=== PATIENT | male | born 1990 ===

== ENCOUNTER 2017-01-26 09:44 | Emergency (ER) | payer MEDICAID ==
[2017-01-26 09:44] VITALS: BMI 20.5
[2017-01-26 10:04] VITALS: BP 105/70; RESP 16; TEMP 98.2; O2SAT 98
[2017-01-26 10:43] VITALS: PULSE 62
--- NOTE | 2017-01-27 10:59 | CARD ---
APPROVED REPORT EKG Measurement Heart [id number] <Conclusion> Normal sinus rhythm Normal ECG
== END 2017-01-26 10:52 | disposition home or self-care (01) ==
LOC: H.ER 09:44
DX: K29.70 Gastritis, unspecified, without bleeding (principal); F10.10 Alcohol abuse, uncomplicated; Z86.59 Personal history of other mental and behavioral disorders

== ENCOUNTER 2017-02-18 10:54 | Emergency (ER) | payer MEDICAID ==
[2017-02-18 10:54] VITALS: BMI 20.5
[2017-02-18 11:01] VITALS: BP 108/58; PULSE 84; TEMP 97.9; O2SAT 100
[2017-02-18 11:28] VITALS: RESP 16
[2017-02-18] MEDS ORDERED: Sodium Chloride 0.9% 1,000 ML IV STA (11:56)
--- NOTE | 2017-02-18 12:11 | ED PDOC ---
HPI: General Adult Time Seen by Provider: 02/18/17 11:13 Chief Complaint (Nursing): Headache Chief Complaint (Provider): anxiety History Per: Patient History/Exam Limitations: no limitations Onset/Duration Of Symptoms: Days (x 1) Additional Complaint(s): Bull Ortez is a 26 year old male, with a previous medical history of alcoholism and HIV, who presents to the ED with complaints of alcohol withdrawal stating he felt anxious, shaky and sweaty since yesterday when he stopped alcohol consumption. Patient denies any suicidal ideation, homicidal ideation, abdominal pain, nausea or vomiting. He reports taking marijuana 3 days ago but denies any other drug use. Patient reports he is trying to find a detox program PMD none provided Past Medical History Reviewed: Historical Data, Nursing Documentation, Vital Signs Vital Signs: Last Vital Signs Temp 97.9 F 02/18/17 11:22 Pulse 84 02/18/17 11:22 Resp 16 02/18/17 11:22 BP 108/58 L 02/18/17 11:22 Pulse Ox 100 02/18/17 13:49 - Medical History PMH: Anxiety, Bipolar Disorder, Depression, HIV, Paranoia, Schizophrenia, Seizures (ETOH related) Denies: Diabetes, Hepatitis, HTN, Personality Disorder, Chronic Kidney Disease, Sexually Transmitted Disease - Family History Family History: States: Unknown Family Hx - Immunization History Hx Tetanus Toxoid Vaccination: No Hx Influenza Vaccination: No Hx Pneumococcal Vaccination: No - Home Medications Home Medications: Ambulatory Orders Medication Instructions Recorded Elviteg/Melanie/Emtric/Tenofo Ala 1 each PO DAILY 01/31/17 [Genvoya Tablet] ARIPiprazole [Abilify] 10 mg PO QPM #10 tab 02/04/17 Gabapentin [Neurontin] 400 mg PO TID #30 cap 02/04/17 buPROPion XL [Wellbutrin XL] 150 mg PO DAILY #30 t24 02/04/17 hydrOXYzine HCl [Atarax] 50 mg PO BID PRN #60 tab 02/04/17 - Allergies Allergies/Adverse Reactions: Allergies Allergy/AdvReac Type Severity Reaction Status Date / Time haloperidol [From Haldol] AdvReac PAIN Verified 02/09/17 23:34 haloperidol lactate AdvReac PAIN Verified 02/09/17 23:34 [From Haldol] Review of Systems ROS Statement: Except As Marked, All Systems Reviewed And Found Negative Constitutional: Negative for: Fever, Chills Gastrointestinal: Negative for: Nausea, Vomiting, Abdominal Pain, Diarrhea Neurological: Positive for: Other (shaking) Psych: Positive for: Anxiety Physical Exam - Reviewed Nursing Documentation Reviewed: Yes Vital Signs Reviewed: Yes - Physical Exam Appears: Positive for: Well, Non-toxic, No Acute Distress Head Exam: Positive for: ATRAUMATIC, NORMAL INSPECTION, NORMOCEPHALIC Skin: Positive for: Normal Color, Warm, DRY Eye Exam: Positive for: EOMI, Normal appearance, PERRL ENT: Positive for: Normal ENT Inspection Neck: Positive for: Normal, Painless ROM Cardiovascular/Chest: Positive for: Regular Rate, Rhythm Respiratory: Positive for: CNT, Normal Breath Sounds Gastrointestinal/Abdominal: Positive for: Normal Exam, Bowel Sounds, Soft Back: Positive for: Normal Inspection Extremity: Positive for: Normal ROM, Other (no tremors noted ) Neurologic/Psych: Positive for: Alert, Oriented - Laboratory Results Result Diagrams: 02/18/17 12:14 02/18/17 12:14 - ECG O2 Sat by Pulse Oximetry: 100 (RA) Pulse Ox Interpretation: Normal - Progress Re-evaluation Time: 13:48 Condition: Re-examined, Improved Medical Decision Making Medical Decision Making: Initial Impression: alcohol withdrawal Initial Plan: * labs * folic acid 1mg * IV NS 1,000 ml at 1,000 ml/hr * zofran 4 mg IV * vitamin B1 * Librium * reevaluation --------- Scribe Attestation: Documented by Yoana Huynh, acting as a scribe for Alma Vargas MD. Provider Scribe Attestation: All medical record entries made by the Scribe were at my direction and personally dictated by me. I have reviewed the chart and agree that the record accurately reflects my personal performance of the history, physical exam, medical decision making, and the department course for this patient. I have also personally directed, reviewed, and agree with the discharge instructions and disposition Disposition - Clinical Impression Clinical Impression: Alcohol abuse, Alcohol withdrawal - Patient ED Disposition Is Patient to be Admitted: No Doctor Will See Patient In The: Office Counseled Patient/Family Regarding: Studies Performed, Diagnosis, Need For Followup - Disposition Referrals: [facility] [Outside] Disposition: Routine/Home Disposition Time: 13:49 Condition: GOOD Additional Instructions: Follow up with your PCP in 3 days. Instructions: Abuse of Alcohol (ED), Alcohol Withdrawal (DC)
[2017-02-18 12:26] LABS: BASO # 0.1 K/uL (0.0-0.2); EOS % 0.6 % (0.0-4.0); HEMATOCRIT 43.3 % (35.0-51.0); LYMPH # 1.5 K/uL (1.0-4.3); LYMPH % 19.8 % (20.0-40.0); MEAN CELL VOLUME 92.7 fl (80.0-94.0); MEAN CORPUSCULAR HEMOGLOBIN 32.2 pg (27.0-31.0); MEAN CORPUSCULAR HGB CONC 34.8 g/dL (33.0-37.0); MEAN PLATELET VOLUME 8.1 fl (7.2-11.7); MONO # 0.5 K/uL (0.0-0.8); NEUT # 5.5 K/uL (1.8-7.0); NEUT % 71.6 % (50.0-75.0); NRBC % 0.1 % (0.0-0.0); RED CELL DISTRIBUTION WIDTH 13.6 % (11.5-14.5); WHITE BLOOD COUNT 7.8 K/uL (4.8-10.8)
[2017-02-18 12:43] LABS: BLOOD UREA NITROGEN 18 mg/dl (9-20); CALCIUM 9.3 mg/dL (8.4-10.2); CARBON DIOXIDE 27 mmol/L (22-30); CHLORIDE 102 mmol/L (98-107); GFR AFRICAN-AMERICAN > 60; GLUCOSE,RANDOM 99 mg/dL (75-110); SODIUM 138 mmol/l (132-148)
[2017-02-18 12:44] LABS: POTASSIUM 4.1 MMOL/L (3.6-5.0)
== END 2017-02-18 14:14 | disposition home or self-care (01) ==
LOC: H.ER 10:54
DX: F10.239 Alcohol dependence with withdrawal, unspecified (principal); F10.10 Alcohol abuse, uncomplicated; Z86.59 Personal history of other mental and behavioral disorders; B20 Human immunodeficiency virus [HIV] disease
CPT/HCPCS: 80048; 85025; 96361; 96365; 96375; 99284; J2405; J7040

== ENCOUNTER 2017-05-12 13:29 | Emergency (ER) | payer MEDICAID ==
[2017-05-12 13:29] VITALS: BMI 21.9
[2017-05-12 13:35] VITALS: BP 117/75; PULSE 112; RESP 16; TEMP 97.8; O2SAT 100
[2017-05-12] MEDS ORDERED: Sodium Chloride 0.9% 1,000 ML IV STA (14:18)
--- NOTE | 2017-05-12 14:21 | ED PDOC ---
HPI: Psych/Substance Abuse Time Seen by Provider: 05/12/17 14:14 Chief Complaint (Nursing): Dizziness/Lightheaded History Per: Patient Onset/Duration Of Symptoms: Days (1) Current Symptoms Are (Timing): Still Present Suicide/Self Injury Attempted (Context): None Modifying Factor(s): Alcohol Severity: Mild Additional Complaint(s): Feels tremulous after cessation of ETOH x 24 hrs. Drinks daily. Last drank 24 hrs ago. Denies SI/HI Past Medical History Vital Signs: Last Vital Signs Temp 97.8 F 05/12/17 13:33 Pulse 112 H 05/12/17 13:33 Resp 16 05/12/17 13:33 BP 117/75 05/12/17 13:33 Pulse Ox 100 05/12/17 13:33 - Medical History PMH: Anxiety, Asthma, Bipolar Disorder, Depression, HIV, Paranoia, Schizophrenia , Seizures (ETOH related) Denies: Diabetes, Hepatitis, HTN, Personality Disorder, Chronic Kidney Disease, Sexually Transmitted Disease - Family History Family History: States: Unknown Family Hx - Immunization History Hx Tetanus Toxoid Vaccination: No Hx Influenza Vaccination: No Hx Pneumococcal Vaccination: No - Home Medications Home Medications: Ambulatory Orders Medication Instructions Recorded ARIPiprazole [Abilify] 10 mg PO DAILY #30 tab 04/18/17 Gabapentin [Neurontin] 300 mg PO TID #90 cap 04/18/17 traZODone [Desyrel] 100 mg PO HS PRN #30 tab 04/18/17 chlordiazePOXIDE [Chlordiazepoxide 25 mg PO TID #10 cap 05/12/17 HCl] - Allergies Allergies/Adverse Reactions: Allergies Allergy/AdvReac Type Severity Reaction Status Date / Time haloperidol [From Haldol] AdvReac PAIN Verified 05/12/17 13:33 haloperidol lactate AdvReac PAIN Verified 05/12/17 13:33 [From Haldol] Review of Systems ROS Statement: Except As Marked, All Systems Reviewed And Found Negative Neurological: Positive for: Seizures Psych: Positive for: Anxiety Physical Exam - Reviewed Nursing Documentation Reviewed: Yes Vital Signs Reviewed: Yes - Physical Exam Appears: Positive for: Non-toxic, No Acute Distress Head Exam: Positive for: ATRAUMATIC, NORMAL INSPECTION, NORMOCEPHALIC Skin: Positive for: Normal Color, Warm, DRY Eye Exam: Positive for: EOMI, Normal appearance, PERRL ENT: Positive for: Normal ENT Inspection Neck: Positive for: Normal, Painless ROM Cardiovascular/Chest: Positive for: Regular Rate, Rhythm Respiratory: Positive for: CNT, Normal Breath Sounds Gastrointestinal/Abdominal: Positive for: Normal Exam, Bowel Sounds, Soft Back: Positive for: Normal Inspection Extremity: Positive for: Normal ROM Neurologic/Psych: Positive for: Alert, Oriented, Other (Minimal tremors upper ext.). Negative for: Motor/Sensory Deficits - Laboratory Results Result Diagrams: 05/12/17 14:45 05/12/17 14:45 - ECG O2 Sat by Pulse Oximetry: 100 - Progress Re-evaluation Time: 16:46 Condition: Improved (No tremors) Disposition - Clinical Impression Clinical Impression: Alcohol withdrawal - Patient ED Disposition Is Patient to be Admitted: No Counseled Patient/Family Regarding: Studies Performed, Diagnosis, Need For Followup, Rx Given - Disposition Referrals: [facility] [Outside] Disposition: Routine/Home Disposition Time: 16:47 Condition: FAIR Prescriptions: chlordiazePOXIDE [Chlordiazepoxide HCl] 25 mg PO TID #10 cap Instructions: Alcohol Withdrawal (ED) Forms: [facility] (Thai)
[2017-05-12 14:53] LABS: BASO % 0.7 % (0.0-2.0); EOS # 0.1 K/uL (0.0-0.7); EOS % 0.8 % (0.0-4.0); HEMATOCRIT 46.1 % (35.0-51.0); LYMPH # 1.3 K/uL (1.0-4.3); LYMPH % 19.2 % (20.0-40.0); MEAN CELL VOLUME 93.8 fl (80.0-94.0); MEAN CORPUSCULAR HEMOGLOBIN 32.3 pg (27.0-31.0); MEAN CORPUSCULAR HGB CONC 34.4 g/dL (33.0-37.0); MEAN PLATELET VOLUME 8.4 fl (7.2-11.7); MONO # 0.6 K/uL (0.0-0.8); MONO % 9.8 % (0.0-10.0); NEUT # 4.6 K/uL (1.8-7.0); NEUT % 69.5 % (50.0-75.0); NRBC % 0.1 % (0.0-0.0); RED CELL DISTRIBUTION WIDTH 13.3 % (11.5-14.5); WHITE BLOOD COUNT 6.6 K/uL (4.8-10.8)
[2017-05-12 15:11] LABS: ALB/GLOB RATIO 1.2 (1.0-2.1); ALCOHOL SERUM < 10 mg/dl (0-10); ALKALINE PHOSPHATASE 50 U/L (38-126); ALT/SGPT 52 U/L (21-72); AST/SGOT 41 U/L (17-59); BILIRUBIN,TOTAL 0.6 mg/dl (0.2-1.3); BLOOD UREA NITROGEN 12 mg/dl (9-20); CALCIUM 9.2 mg/dL (8.4-10.2); CARBON DIOXIDE 29 mmol/L (22-30); CHLORIDE 103 mmol/L (98-107); GFR AFRICAN-AMERICAN > 60; GLUCOSE,RANDOM 95 mg/dL (75-110); POTASSIUM 3.7 MMOL/L (3.6-5.0); SODIUM 141 mmol/l (132-148); TOTAL PROTEIN 7.6 G/DL (6.3-8.2)
--- NOTE | 2017-05-13 05:52 | CARD ---
APPROVED REPORT EKG Measurement Heart [id number] [id number] [id number] <Conclusion> Normal sinus rhythm Possible Inferior infarct, age undetermined Abnormal ECG
== END 2017-05-12 16:59 | disposition home or self-care (01) ==
LOC: H.ER 13:29
DX: F10.239 Alcohol dependence with withdrawal, unspecified (principal); F20.9 Schizophrenia, unspecified; F31.9 Bipolar disorder, unspecified; F41.9 Anxiety disorder, unspecified; J45.909 Unspecified asthma, uncomplicated
CPT/HCPCS: 80053; 80320; 80324; 80345; 80346; 80349; 80353; 80358; 80361; 83992; 85025; 93005; 99285; J7040

== ENCOUNTER 2017-05-22 19:26 | Inpatient (IN) | payer MEDICAID ==
[2017-05-22 19:26] VITALS: BMI 21.9
--- NOTE | 2017-05-22 19:47 | ED PDOC ---
HPI: Psych/Substance Abuse Time Seen by Provider: 05/22/17 19:35 Chief Complaint (Nursing): Psychiatric Evaluation Chief Complaint (Provider): Psychiatric Evaluation History Per: Patient History/Exam Limitations: no limitations Onset/Duration Of Symptoms: Days (x1) Current Symptoms Are (Timing): Still Present Additional Complaint(s): Bull Ortez is a 27 year old male with a past medical history of schizoaffective disorder and alcohol abuse, who presents to the ED for psychiatric evaluation. Patent arrives stating I have suicidal ideation. Patient states that hes been depressed about his relationship with his girlfriend and that he plans on buying Xanax, overdosing and killing himself. States he had alcohol prior to arrival. Denies drug use. PMD: [facility] Past Medical History Reviewed: Historical Data, Nursing Documentation, Vital Signs Vital Signs: Last Vital Signs Temp 98.1 F 05/22/17 19:29 Pulse 98 H 05/22/17 19:29 Resp 16 05/22/17 19:29 BP 115/69 05/22/17 19:29 Pulse Ox 98 05/22/17 19:29 - Medical History PMH: Anxiety, Asthma, Bipolar Disorder, Depression, HIV, Paranoia, Schizophrenia , Seizures (ETOH related) Denies: Diabetes, Hepatitis, HTN, Personality Disorder, Chronic Kidney Disease, Sexually Transmitted Disease - Surgical History Surgical History: No Surg Hx - Family History Family History: States: Unknown Family Hx - Social History Alcohol: Occasional - Immunization History Hx Tetanus Toxoid Vaccination: No Hx Influenza Vaccination: No Hx Pneumococcal Vaccination: No - Home Medications Home Medications: Ambulatory Orders Medication Instructions Recorded ARIPiprazole [Abilify] 10 mg PO DAILY #30 tab 04/18/17 Gabapentin [Neurontin] 300 mg PO TID #90 cap 04/18/17 traZODone [Desyrel] 100 mg PO HS PRN #30 tab 04/18/17 chlordiazePOXIDE [Chlordiazepoxide 25 mg PO TID #10 cap 05/12/17 HCl] - Allergies Allergies/Adverse Reactions: Allergies Allergy/AdvReac Type Severity Reaction Status Date / Time haloperidol [From Haldol] AdvReac PAIN Verified 05/12/17 13:33 haloperidol lactate AdvReac PAIN Verified 05/12/17 13:33 [From Haldol] Review of Systems ROS Statement: Except As Marked, All Systems Reviewed And Found Negative Psych: Positive for: Suicidal ideation Physical Exam - Physical Exam Appears: Positive for: Non-toxic, No Acute Distress Head Exam: Positive for: ATRAUMATIC, NORMAL INSPECTION, NORMOCEPHALIC Skin: Positive for: Normal Color, Warm, Dry Eye Exam: Positive for: EOMI, Normal appearance, PERRL Neck: Positive for: Normal, Painless ROM, Supple Cardiovascular/Chest: Positive for: Regular Rate, Rhythm. Negative for: Murmur Respiratory: Positive for: Normal Breath Sounds. Negative for: Respiratory Distress Gastrointestinal/Abdominal: Positive for: Normal Exam, Bowel Sounds, Soft. Negative for: Tenderness Back: Positive for: Normal Inspection. Negative for: L CVA Tenderness, R CVA Tenderness, Vertebral Tenderness Extremity: Positive for: Normal ROM. Negative for: Pedal Edema, Deformity Neurologic/Psych: Positive for: Alert, Oriented (x3), Mood/Affect (Flat affect) - Laboratory Results Result Diagrams: 05/22/17 21:03 05/22/17 20:03 - ECG O2 Sat by Pulse Oximetry: 98 (RA) Pulse Ox Interpretation: Normal Medical Decision Making Medical Decision Making: Time: 19:35 Initial Impression: Schizoaffective disorder, depression --Acetaminophen --Alcohol serum --BMP --Drug screen, urine --Salicylate --CBC w/ differential --Urinalysis --Reevaluation 245 Librium given to prevent withdrawal symptoms. Pt. accepted by Dr. Ramirez w/ dx: depression. Scribe Attestation: Documented by Rafael Presley acting as a scribe for Arthur Burton MD. MD Morrisibfrancisco Attestation: All medical record entries made by the Scribe were at my direction and personally dictated by me. I have reviewed the chart and agree that the record accurately reflects my personal performance of the history, physical exam, medical decision making, and the department course for this patient. I have also personally directed, reviewed, and agree with the discharge instructions and disposition. Disposition - Clinical Impression Clinical Impression: Depression - Disposition Disposition Time: 02:45 Condition: SERIOUS Forms: [facility] (Guamanian)
[2017-05-22 20:21] LABS: ALCOHOL SERUM 244 mg/dl (0-10); BLOOD UREA NITROGEN 10 mg/dl (9-20); CALCIUM 9.2 mg/dL (8.4-10.2); CARBON DIOXIDE 24 mmol/L (22-30); CHLORIDE 104 mmol/L (98-107); GFR AFRICAN-AMERICAN > 60; GLUCOSE,RANDOM 59 mg/dL (75-110); SODIUM 146 mmol/l (132-148)
[2017-05-22 21:30] LABS: BASO # 0.1 K/uL (0.0-0.2); BASO % 1.2 % (0.0-2.0); EOS # 0.1 K/uL (0.0-0.7); EOS % 1.4 % (0.0-4.0); HEMATOCRIT 52.8 % (35.0-51.0); LYMPH % 41.3 % (20.0-40.0); MEAN CELL VOLUME 95.5 fl (80.0-94.0); MEAN CORPUSCULAR HEMOGLOBIN 32.2 pg (27.0-31.0); MEAN CORPUSCULAR HGB CONC 33.7 g/dL (33.0-37.0); MEAN PLATELET VOLUME 8.3 fl (7.2-11.7); MONO # 0.8 K/uL (0.0-0.8); MONO % 7.9 % (0.0-10.0); NEUT # 4.7 K/uL (1.8-7.0); NEUT % 48.2 % (50.0-75.0); NRBC % 0.3 % (0.0-0.0); RED CELL DISTRIBUTION WIDTH 13.6 % (11.5-14.5); WHITE BLOOD COUNT 9.6 K/uL (4.8-10.8)
[2017-05-22 23:07] LABS: URINE BILIRUBIN NEGATIVE (NEGATIVE); URINE COLOR YELLOW (YELLOW); URINE GLUCOSE (UA) NEGATIVE (Normal); URINE KETONE TRACE mg/dL (NEGATIVE)
[2017-05-22 23:08] LABS: RBC URINE < 1 /hpf (0-3); URINE BLOOD NEGATIVE (NEGATIVE); URINE LEUKOCYTE ESTERASE NEGATIVE Leu/uL (Negative); URINE PROTEIN 30 mg/dL (NEGATIVE); URINE UROBILINOGEN 0.2 mg/dL (0.2-1.0); WBC URINE 2 /hpf (0-5)
[2017-05-22 23:09] LABS: GRANULAR CAST 1 /lpf (0-1)
[2017-05-23 03:36] VITALS: O2SAT 96
[2017-05-23] MEDS ORDERED: Alum-Mag Hydrox-Simethicone Susp (30 mL) PO PRN (04:26)
[2017-05-23] MEDS ORDERED: Magnesium Hydroxide Susp 30 ml UD PO PRN (04:26)
[2017-05-23] MEDS ORDERED: DiphenhydrAMINE 50 mg/ml Inj IM PRN (04:26)
--- NOTE | 2017-05-23 05:08 | PCM.BM ---
Treatment Plan Problems - Problems identified on initial assessmt Suicide ideation Date Initiated: 05/23/17 Time Initiated: 05:07 Assessment reference: NA Status: Active Ineffective coping Date Initiated: 05/23/17 Time Initiated: 05:07 Assessment reference: NA Status: Active Treatment assets and liabiliti Patient Assests: cooperative, self-reliant, ADL independent, negotiates basic needs, cognitively intact, good interpersonal skills Patient Liabilities: relationship conflicts, substance abuse, medical problems - Milieu Protocol Maintain good personal hygiene: daily Assist patient to perform ADL's, every shift Encourage regular showers, every shift Remind patient to perform daily oral care Conduct patient checks and document Observation sheet: Q15 minutes Maintain personal safety: every shift Educate patient to report safety concerns to staff, every shift Monitor environment for contraband/sharps Medication safety: Monitor for expected outcome, potential side effects: daily, Assess barriers to learning: every shift, Assess readiness for medication education: every shift
[2017-05-23 05:10] VITALS: RESP 18
[2017-05-23] MEDS: Multivitamin With Minerals Tab PO SCH (09:59)
--- NOTE | 2017-05-23 15:25 | PCM.PSYCH ---
Initial Psychiatric Evaluation - Initial Psychiatric Evaluation Chief Complaint (in patient's own words): I was depressed Patient's Reaction to Hospitalization: pt requested help History of Present Illness and Precipitating Events: patient is a single HIV+ 26 year old male with a psychiatric history of bipolar disorder, borderline personality disorder, panic disorder, alcohol dependency, stimulant abuse, numerous admissions-most recently at [facility] 01/31/17-02/04, poor compliance with aftercare recommendations and medications who was brought in by EMS to the emergency department for suicidal ideation and alcohol intoxication. pt reported having conflict with girlfriend accordingly started using mincreasing amounts of alcohol and cannabis denied suicidal or homicidal ideations on the unit denied perceptual disturbances Current Medications: Active Medications Generic Name Dose Route Start Last Admin Trade Name Freq PRN Reason Stop Dose Admin Acetaminophen 650 mg 05/23/17 04:26 Tylenol 325mg Tab PO Q4 PRN Pain, moderate (4-7) Al Hydrox/Mg Hydrox/Simethicone 30 ml 05/23/17 04:26 Maalox Plus 30 Ml PO Q4 PRN Dyspepsia Bupropion HCl 75 mg 05/23/17 12:14 05/23/17 14:49 Wellbutrin PO 75 mg DAILY TAVIA Administration Chlordiazepoxide 25 mg 05/23/17 04:51 05/23/17 10:02 Librium PO 25 mg Q4H PRN Administration Withdrawl Diphenhydramine HCl 50 mg 05/23/17 04:26 Benadryl IM Q6 PRN Extrapyramidal S/S Unable PO Diphenhydramine HCl 50 mg 05/23/17 04:26 Benadryl PO Q6 PRN Extrapyramidal Symptoms Diphenhydramine HCl 50 mg 05/23/17 04:41 Benadryl PO HS PRN Sleep Folic Acid 1 mg 05/23/17 09:00 05/23/17 09:59 Folic Acid PO 1 mg DAILY TAVIA Administration Lorazepam 1 mg 05/23/17 04:26 Ativan IM Q4 PRN Anxiety/Agitation,Unable PO Lorazepam 2 mg 05/23/17 04:26 Ativan PO Q4 PRN Anxiety/Agitation Magnesium Hydroxide 30 ml 05/23/17 04:26 Milk Of Magnesia PO HS PRN Constipation Multivitamins/Minerals 1 tab 05/23/17 09:00 05/23/17 09:59 Therapeutic-M Tab PO 1 tab DAILY TAVIA Administration Thiamine HCl 100 mg 05/23/17 09:00 05/23/17 09:59 Vitamin B1 Tab PO 100 mg DAILY TAVIA Administration Past Psychiatric History - Past Psychiatric History Explanation of prior treatment: unspecified number of hospitalizations due to alcohol intoxication and suicidal ideations History of Abuse: denied History of ETOH/Drug Use: hx of alcohol, benzo, cocaine and cannabis use History of Family Illness: father has hx of alcohol use Pertinent Medical Hx (Current Medical&Sleep Prob, Allergies): Allergies Allergy/AdvReac Type Severity Reaction Status Date / Time haloperidol [From Haldol] AdvReac PAIN Verified 05/12/17 13:33 haloperidol lactate AdvReac PAIN Verified 05/12/17 13:33 [From Haldol] Mental Status Examination - Personal Presentation Personal Presentation: Looks stated age - Affect Affect: Constricted, Depressed - Motor Activity Motor Activity: Calm - Reliability in Providing Information Reliability in Providing Information: Poor, due to altered mood - Speech Speech: Relevant - Mood Mood: Depressed, Anxious - Formal Thought Process Formal Thought Process: Circumstantial - Hallucinations/Delusions Additional comments: denied perceptual disturbances, non elicited - Obsessions/Compulsions Obsessions: No Compulsions: No - Cognitive Functions Orientation: Person, Place, Situation Sensorium: Alert Attention/Concentration: Attentive Abstract Thinking: [place] Judgement: Imparied, as evidence by: Poor judgement, Imparied, as evidence by: Lack of insight into illness - Risk Risk: Withdrawal, Diminished functioning - Strength & Assets Inventory Strength & Assets Inventory: Family support - Limitations Additional comments: poor compliance DSM 5 DX - DSM 5 DSM 5 Diagnosis: alcohol induced mood disorder with depressive features alcohol use disorder cannabis use disorder depression - Recommended/Plan of Treatment Treatment Recommendations and Plan of Treatment: librium prn for symptoms and signs of alcohol withdrawal start wellbutrin for depression and alcohol cravings ID consult for restarting HIV medications motivational and group therapy Projected ELOS: 5 days Discharge Plan and Discharge Criteria: pt mood stable
--- NOTE | 2017-05-23 16:29 | CP.PCM.CON ---
<Daniela Becker - Last Filed: 05/23/17 16:48> History of Present Illness - History of Present Illness History of Present Illness: 27 y/o male with PMHx of HIV and depression seen at bedside in psych unit for medical evaluation. Pt states he was feeling depressed and suicidal and drank heavily prior to admission. Pt admits to a long history of alcoholism with several attempts at quitting but relapsing soon after. Pt admits to frequent withdrawals with cold sweats and shaking. Pt admits to a history of seizures. Pt states he normally takes Genvoya for his HIV but has been off it for approx 1 month due to inability to get a doctor's appointment. Pt states that over the last month he resumed taking some leftover Stribild he had, which he was on prior to starting Genvoya. Admits to mild watery diarrhea. Denies fever, chills , nausea or vomiting. Denies constipation or abdominal pain. Denies headache, changes in vision, dizziness or lightheadedness. Denies cough, CP or SOB. Admits to formerly taking Wellbutrin for depression but says he becomes noncompliant with his medications when he goes on drinking binges. PMH: HIV, seizures following alcohol withdrawal, depression Meds: Genvoya PSH: denies All: haloperidol (dystonic reaction) Social: alcohol abuse, 1/2 pack cigarettes/day, admits to smoking marijuana; denies all other illicit drug use Family: lives with grandmother locally; father had cancer; no fam hx of DM or heart disease Next of Kin: girlfriend Code status: full code Review of Systems - Constitutional Constitutional: Night Sweats. absent: Chills, Fever - EENT Eyes: absent: Blurred Vision Nose/Mouth/Throat: absent: Nasal Discharge, Dry Mouth - Cardiovascular Cardiovascular: absent: Chest Pain, Dyspnea - Respiratory Respiratory: absent: Cough - Gastrointestinal Gastrointestinal: Diarrhea. absent: Constipation, Nausea, Vomiting - Genitourinary Genitourinary: absent: Difficulty Urinating - Musculoskeletal Musculoskeletal: absent: Muscle Weakness - Integumentary Integumentary: absent: New Lesions - Neurological Neurological: absent: Confusion, Headaches - Psychiatric Psychiatric: Depression Past Patient History - Infectious Disease Hx of Infectious Diseases: None - Past Medical History & Family History Past Medical History?: Yes Pertinent Family History: father has hx of cancer - Past Social History Smoking Status: Heavy Smoker > 10 Cigarettes Daily Home Situation {Lives}: With Family - CARDIAC Hx Cardiac Disorders: No Hx Hypertension: No - PULMONARY Hx Tuberculosis: No - NEUROLOGICAL HX Cerebrovascular Accident: No Hx Seizures: Yes (ETOH related) - HEENT Hx HEENT Problems: No - RENAL Hx Chronic Kidney Disease: No - ENDOCRINE/METABOLIC Hx Endocrine Disorders: No - HEMATOLOGICAL/ONCOLOGICAL Hx Cancer: No Hx Human Immunodeficiency Virus (HIV): Yes (since ) - INTEGUMENTARY Hx Dermatological Problems: No - MUSCULOSKELETAL/RHEUMATOLOGICAL Hx Falls: No - GASTROINTESTINAL Hx Gastrointestinal Disorders: No - GENITOURINARY/GYNECOLOGICAL Hx Sexually Transmitted Disorders: No - PSYCHIATRIC Hx Anxiety: Yes Hx Depression: Yes Hx Substance Use: Yes (mj) - SURGICAL HISTORY Hx Orthopedic Surgery: Yes (Right wrist surgery) Other/Comment: surgery rt wrist 2009 - ANESTHESIA Hx Anesthesia: Yes Hx Anesthesia Reactions: No Hx Malignant Hyperthermia: No Meds Allergies/Adverse Reactions: Allergies Allergy/AdvReac Type Severity Reaction Status Date / Time haloperidol [From Haldol] AdvReac PAIN Verified 05/12/17 13:33 haloperidol lactate AdvReac PAIN Verified 05/12/17 13:33 [From Haldol] - Medications Medications: Current Medications Acetaminophen (Tylenol 325mg Tab) 650 mg PO Q4 PRN PRN Reason: Pain, moderate (4-7) Al Hydrox/Mg Hydrox/Simethicone (Maalox Plus 30 Ml) 30 ml PO Q4 PRN PRN Reason: Dyspepsia Bupropion HCl (Wellbutrin) 75 mg PO DAILY [facility] Last Admin: 05/23/17 14:49 Dose: 75 mg Chlordiazepoxide (Librium) 25 mg PO Q4H PRN PRN Reason: Withdrawl Last Admin: 05/23/17 10:02 Dose: 25 mg Diphenhydramine HCl (Benadryl) 50 mg IM Q6 PRN PRN Reason: Extrapyramidal S/S Unable PO Diphenhydramine HCl (Benadryl) 50 mg PO Q6 PRN PRN Reason: Extrapyramidal Symptoms Diphenhydramine HCl (Benadryl) 50 mg PO HS PRN PRN Reason: Sleep Folic Acid (Folic Acid) 1 mg PO DAILY TAVIA Last Admin: 05/23/17 09:59 Dose: 1 mg Lorazepam (Ativan) 1 mg IM Q4 PRN PRN Reason: Anxiety/Agitation,Unable PO Lorazepam (Ativan) 2 mg PO Q4 PRN PRN Reason: Anxiety/Agitation Magnesium Hydroxide (Milk Of Magnesia) 30 ml PO HS PRN PRN Reason: Constipation Multivitamins/Minerals (Therapeutic-M Tab) 1 tab PO DAILY [facility] Last Admin: 05/23/17 09:59 Dose: 1 tab Thiamine HCl (Vitamin B1 Tab) 100 mg PO DAILY [facility] Last Admin: 05/23/17 09:59 Dose: 100 mg Physical Exam - Constitutional Appears: Well, Non-toxic, No Acute Distress - Head Exam Head Exam: ATRAUMATIC, NORMOCEPHALIC - Eye Exam Eye Exam: EOMI, Normal appearance Pupil Exam: PERRL - ENT Exam ENT Exam: Mucous Membranes Moist, Normal Exam - Neck Exam Neck exam: Positive for: Full Rom, Normal Inspection. Negative for: Tenderness - Respiratory Exam Respiratory Exam: Clear to Auscultation Bilateral, NORMAL BREATHING PATTERN. absent: Wheezes, Respiratory Distress - Cardiovascular Exam Cardiovascular Exam: REGULAR RHYTHM, +S1, +S2 - GI/Abdominal Exam GI & Abdominal Exam: Normal Bowel Sounds, Soft. absent: Distended - Rectal Exam Rectal Exam: Deferred - Extremities Exam Extremities exam: Positive for: normal capillary refill, normal inspection, pedal pulses present. Negative for: calf tenderness - Back Exam Back exam: NORMAL INSPECTION - Neurological Exam Neurological exam: Alert, CN II-XII Intact, Oriented x3 - Psychiatric Exam Psychiatric exam: Depressed - Skin Skin Exam: Dry, Intact, Normal Color, Warm Results - Vital Signs Recent Vital Signs: Last Vital Signs Temp 98.8 F 05/23/17 03:34 Pulse 81 05/23/17 03:34 Resp 18 05/23/17 04:24 BP 117/73 05/23/17 03:34 Pulse Ox 96 05/23/17 03:34 - Labs Result Diagrams: 05/22/17 21:03 05/22/17 20:03 Labs: Laboratory Results - last 24 hr 05/22/17 05/22/17 05/22/17 20:03 20:03 21:03 WBC 9.6 RBC 5.53 Hgb 17.8 Hct 52.8 H MCV 95.5 H MCH 32.2 H MCHC 33.7 RDW 13.6 Plt Count 309 MPV 8.3 Neut % (Auto) 48.2 L Lymph % (Auto) 41.3 H [place] % (Auto) 7.9 Eos % (Auto) 1.4 Baso % (Auto) 1.2 Neut # 4.7 Lymph # 4.0 [place] # 0.8 Eos # 0.1 Baso # 0.1 Sodium 146 Potassium 4.0 Chloride 104 Carbon Dioxide 24 Anion Gap 22 H BUN 10 Creatinine 0.7 L Est GFR ( Amer) > 60 Est GFR (Non-Af Amer) > 60 Random Glucose 59 L Calcium 9.2 Urine Color Urine Clarity Urine pH Ur Specific [place] Urine Protein Urine Glucose (UA) Urine Ketones Urine Blood Urine Nitrate Urine Bilirubin Urine Urobilinogen Ur Leukocyte Esterase Urine RBC (Auto) Urine Microscopic WBC Ur Squamous Epith Cells Granular Casts (Auto) Salicylates < 1.0 Urine Opiates Screen Urine Methadone Screen Acetaminophen < 10.0 L Ur Barbiturates Screen Ur Phencyclidine Scrn Ur Amphetamines Screen U Benzodiazepines Scrn U Oth Cocaine Metabols U Cannabinoids Screen Alcohol, Quantitative 244 H 05/22/17 05/22/17 22:38 22:38 WBC RBC Hgb Hct MCV MCH MCHC RDW Plt Count MPV Neut % (Auto) Lymph % (Auto) [place] % (Auto) Eos % (Auto) Baso % (Auto) Neut # Lymph # [place] # Eos # Baso # Sodium Potassium Chloride Carbon Dioxide Anion Gap BUN Creatinine Est GFR ( Amer) Est GFR (Non-Af Amer) Random Glucose Calcium Urine Color Yellow Urine Clarity Slight-cloudy Urine pH 6.0 Ur Specific [place] >= 1.030 Urine Protein 30 Urine Glucose (UA) Negative Urine Ketones Trace H Urine Blood Negative Urine Nitrate Negative Urine Bilirubin Negative Urine Urobilinogen 0.2 Ur Leukocyte Esterase Negative Urine RBC (Auto) < 1 Urine Microscopic WBC 2 Ur Squamous Epith Cells 1 Granular Casts (Auto) 1 Salicylates Urine Opiates Screen Negative Urine Methadone Screen Negative Acetaminophen Ur Barbiturates Screen Negative Ur Phencyclidine Scrn Negative Ur Amphetamines Screen Negative U Benzodiazepines Scrn Negative U Oth Cocaine Metabols Negative U Cannabinoids Screen Positive H Alcohol, Quantitative Assessment & Plan - Assessment and Plan (Free Text) Assessment: 1) HIV -last absolute CD4 count 506 on 03/03/17 -new CD4, viral load, CMP pending -will discuss with PMD Dr. Brady prior to resuming Genvoya 2) Depression -defer to psych for medical management 3) Alcohol withdrawal -c/w Ativan PRN <Jacklyn Coello - Last Filed: 05/24/17 09:35> Meds - Medications Medications: Current Medications Acetaminophen (Tylenol 325mg Tab) 650 mg PO Q4 PRN PRN Reason: Pain, moderate (4-7) Al Hydrox/Mg Hydrox/Simethicone (Maalox Plus 30 Ml) 30 ml PO Q4 PRN PRN Reason: Dyspepsia Bupropion HCl (Wellbutrin) 75 mg PO DAILY [facility] Last Admin: 05/24/17 09:07 Dose: 75 mg Chlordiazepoxide (Librium) 25 mg PO Q6 PRN PRN Reason: Withdrawl Diphenhydramine HCl (Benadryl) 50 mg IM Q6 PRN PRN Reason: Extrapyramidal S/S Unable PO Diphenhydramine HCl (Benadryl) 50 mg PO Q6 PRN PRN Reason: Extrapyramidal Symptoms Diphenhydramine HCl (Benadryl) 50 mg PO HS PRN PRN Reason: Sleep Folic Acid (Folic Acid) 1 mg PO DAILY [facility] Last Admin: 05/24/17 09:07 Dose: 1 mg Lorazepam (Ativan) 1 mg IM Q4 PRN PRN Reason: Anxiety/Agitation,Unable PO Lorazepam (Ativan) 2 mg PO Q4 PRN PRN Reason: Anxiety/Agitation Magnesium Hydroxide (Milk Of Magnesia) 30 ml PO HS PRN PRN Reason: Constipation Multivitamins/Minerals (Therapeutic-M Tab) 1 tab PO DAILY [facility] Last Admin: 05/24/17 09:06 Dose: 1 tab Thiamine HCl (Vitamin B1 Tab) 100 mg PO DAILY [facility] Last Admin: 05/24/17 09:07 Dose: 100 mg Results - Vital Signs Recent Vital Signs: Last Vital Signs Temp 97.9 F 05/24/17 09:00 Pulse 64 05/24/17 09:00 Resp 18 05/24/17 09:00 BP 107/62 05/24/17 09:00 Pulse Ox 96 05/23/17 03:34 - Labs Result Diagrams: 05/22/17 21:03 05/22/17 20:03 Attending/Attestation - Attestation I have personally seen and examined this patient.: Yes I have fully participated in the care of the patient.: Yes I have reviewed all pertinent clinical information: Yes Notes (Text): 05/24/17 09:35 Attending note Chart reviewed. Agree with findings and plan.
[2017-05-24] MEDS: Multivitamin With Minerals Tab PO SCH (09:06)
[2017-05-24 09:10] VITALS: BP 107/62; PULSE 64; TEMP 97.9
--- NOTE | 2017-05-24 09:33 | PCM.PYCHPN ---
Psychiatric Progress Note - Psychiatric Progress Note Patient seen today, length of contact: Patient evaluated, case discussed with team, chart reviewed Patient Chief Complaint: "I'm depressed." Problems Identified/Issues Discussed: Patient reports that he continues to feel depressed. He discussed that he has conflict with his girlfriend which causes him to feel stressed. He denied current adverse effects to Wellbutrin. He reports that he feels tremulous at times, but this is alleviated after he takes Librium. He denied current AH/VH/ SI/HI. Medication Change: Yes (Gradually taper Librium) Medical Record Reviewed: Yes Mental Status Examination - Cognitive Function Orientation: Person, Place, Situation, Time Memory: Intact Attention: WNL Concentration: WNL Association: [facility] Fund of Knowledge: WN - Mood Mood: Depressed, Anxious - Affect Affect: Constricted, Depressed - Speech Speech: Appropriate - Formal Thought Process Formal Thought Process: No Impairment Psychotic Thoughts and Behaviors: NO AH/VH/paranoia/delusions - Suicidal Ideation Suicidal Ideation: No - Homicidal Ideation Homicidal Ideation: No Goal/Treatment Plan - Goal/Treatment Plan Need for Continued Stay: Remain at risks for inpatient hospitalization, Severe depression anxiety Progress Toward Problem(s) and Goals/Treatment Plan: Alcohol induced mood disorder with depressive features; Alcohol use disorder; Cannabis use disorder; Depression; patient needs continued hospitalization for treatment and safety. -Individual and group therapy -Medicine consult appreciated -Continue Wellbutrin -Taper Librium daily; PRN Ativan also available if needed -Disposition planning Estimated Date of D/C: 05/27/17
[2017-05-24 10:34] LABS: ALB/GLOB RATIO 1.2 (1.0-2.1); ALKALINE PHOSPHATASE 43 U/L (38-126); ALT/SGPT 58 U/L (21-72); AST/SGOT 49 U/L (17-59); BILIRUBIN,TOTAL 0.8 mg/dl (0.2-1.3); BLOOD UREA NITROGEN 10 mg/dl (9-20); CALCIUM 9.1 mg/dL (8.4-10.2); CARBON DIOXIDE 29 mmol/L (22-30); CHLORIDE 100 mmol/L (98-107); GFR AFRICAN-AMERICAN > 60; GLUCOSE,RANDOM 108 mg/dL (75-110); POTASSIUM 3.6 MMOL/L (3.6-5.0); SODIUM 139 mmol/l (132-148); TOTAL PROTEIN 7.5 G/DL (6.3-8.2)
[2017-05-25] MEDS: Multivitamin With Minerals Tab PO SCH (09:04)
--- NOTE | 2017-05-25 09:38 | PCM.PYCHDC ---
Mental Status Examination - Mental Status Examination Orientation: Person, Place, Situation, Time Memory: Intact Mood: Neutral Affect: Broad Speech: Appropriate Attention: WNL Concentration: WNL Association: WNL Fund of Knowledge: WNL Formal Thought Process: No Impairment Description of patient's judgement and insight: Fair I/J Psychotic Thoughts and Behaviors: NO AH/VH/paranoia/delusions Suicidal Ideation: No Current Homicidal Ideation?: No Discharge Summary - Discharge Note Reason for Hospitalization: As per initial HPI note: patient is a single HIV+ 26 year old male with a psychiatric history of bipolar disorder, borderline personality disorder, panic disorder, alcohol dependency, stimulant abuse, numerous admissions-most recently at [facility] 01/31/17-02/04/17, poor compliance with aftercare recommendations and medications who was brought in by EMS to the emergency department for suicidal ideation and alcohol intoxication. pt reported having conflict with girlfriend accordingly started using mincreasing amounts of alcohol and cannabis denied suicidal or homicidal ideations on the unit denied perceptual disturbances Laboratory Data: Abnormal Lab Results 05/24/17 08:30 Sodium 139 Potassium 3.6 Chloride 100 Carbon Dioxide 29 Anion Gap 14 BUN 10 Creatinine 0.7 L Est GFR ( Amer) > 60 Est GFR (Non-Af Amer) > 60 Random Glucose 108 Calcium 9.1 Total Bilirubin 0.8 AST 49 ALT 58 Alkaline Phosphatase 43 Total Protein 7.5 Albumin 4.1 Globulin 3.4 Albumin/Globulin Ratio 1.2 Consultations:: List each consultation separately and include: 1. Reason for request. 2. Findings. 3. Follow-up Consultations: Medicine consult; patient not agreeable to staying until all of his blood work results returned; patient plans to contact medical records to get the results to bring to his PMD Summary of Hospital Course include:: 1. Description of specific treatment plan utilized for patients during their course of treatmen. 2. Summarize the time- course for resolution of acute symptoms and/or regressed behaviors. 3. Describe issues identified and worked on during hospitalization. 4. Describe medication utilized. 5. Describe medical problems identified and treated. 6. Reassessment of suicide risk Summary of Hospital Course: Patient was admitted to the hospital. He was started on Wellbutrin for depressed and treated w/ Librium to prevent ETOH w/drawal. Patient does not have any current signs/symptoms of ETOH w/drawal. He submitted a 48 hour letter and will be discharged to home as he is not an acute danger to himself or others and does not meet criteria for involuntary commitment. Patient has capacity to make medical decisions. - Final Diagnosis (DSM 5) Condition upon Discharge: STABLE DSM 5: Alcohol induced mood disorder with depressive features; Alcohol use disorder; Cannabis use disorder Disposition: HOME/ ROUTINE Follow-up Treatment Plan: Alcohol induced mood disorder with depressive features; Alcohol use disorder; Cannabis use disorder; patient submitted a 48 hour letter and will be discharged as he is not an acute danger to himself or others and does not meet criteria for involuntary commitment. -Individual and group therapy -Medicine consult appreciated -Continue Wellbutrin -Librium stopped; no signs/symptoms of ETOH w/drawal -Continue MVI, Thiamine, Folate -Discharge w/ outpatient follow-up Prescriptions/Medication Reconciliation: buPROPion [Wellbutrin] 75 mg PO DAILY #30 tab - Smoking Cessation Smoking Cessation Medication prescribed: No Reason for not providing: Not indicated - Antipsychotic Medications Pt discharged on 2 or more routine antipsychotic medications: No
== END 2017-05-25 10:30 | disposition home or self-care (01) | DRG 715 ==
LOC: H.ER 19:26 → H.ERHOLD 05-23 02:44 → H.PSYCH 05-23 04:18
PROVIDERS: ADMIT Psychiatry & Neurology Psychiatry; ATTEND Psychiatry & Neurology Psychiatry
PROC: GZ3ZZZZ Medication Management (ICD-10-PCS; principal; 2017-05-23)
PROC: GZHZZZZ Group Psychotherapy (ICD-10-PCS; 2017-05-23)
PROC: GZ56ZZZ Individual Psychotherapy, Supportive (ICD-10-PCS; 2017-05-23)
DX: F10.24 Alcohol dependence with alcohol-induced mood disorder (principal); Z21 Asymptomatic human immunodeficiency virus [HIV] infection status; F10.239 Alcohol dependence with withdrawal, unspecified; R45.851 Suicidal ideations; J45.909 Unspecified asthma, uncomplicated; F17.210 Nicotine dependence, cigarettes, uncomplicated; F12.90 Cannabis use, unspecified, uncomplicated; F60.3 Borderline personality disorder; F31.9 Bipolar disorder, unspecified; Z80.9 Family history of malignant neoplasm, unspecified; Z91.14 Patient's other noncompliance with medication regimen; F41.0 Panic disorder [episodic paroxysmal anxiety]

== ENCOUNTER 2017-06-20 23:08 | Emergency (ER) | payer SELFPAY ==
[2017-06-20 23:09] VITALS: BMI 21.9
[2017-06-20 23:13] VITALS: RESP 16; O2SAT 95
[2017-06-21 00:30] LABS: BASO # 0.1 K/uL (0.0-0.2); BASO % 1.5 % (0.0-2.0); EOS # 0.1 K/uL (0.0-0.7); EOS % 1.5 % (0.0-4.0); HEMOGLOBIN 15.4 g/dL (12.0-18.0); LYMPH # 1.8 K/uL (1.0-4.3); MEAN CELL VOLUME 93.1 fl (80.0-94.0); MEAN CORPUSCULAR HEMOGLOBIN 31.6 pg (27.0-31.0); MEAN CORPUSCULAR HGB CONC 33.9 g/dL (33.0-37.0); MEAN PLATELET VOLUME 7.3 fl (7.2-11.7); MONO # 0.6 K/uL (0.0-0.8); MONO % 11.7 % (0.0-10.0); NEUT # 2.6 K/uL (1.8-7.0); NEUT % 51.3 % (50.0-75.0); NRBC % 0.1 % (0.0-0.0); RBC 4.87 Mil/uL (4.40-5.90); RED CELL DISTRIBUTION WIDTH 12.9 % (11.5-14.5); WHITE BLOOD COUNT 5.2 K/uL (4.8-10.8)
[2017-06-21 00:42] LABS: ACETAMINOPHEN < 10.0 ug/ml (10.0-30.0); BLOOD UREA NITROGEN 10 mg/dl (9-20); CALCIUM 8.5 mg/dL (8.4-10.2); GFR AFRICAN-AMERICAN > 60; GFR NON-AFRICAN AMERICAN > 60; SALICYLATE < 1.0 mg/dl
--- NOTE | 2017-06-21 00:49 | ED PDOC ---
HPI: Psych/Substance Abuse Time Seen by Provider: 06/20/17 23:26 Chief Complaint (Nursing): Psychiatric Evaluation Chief Complaint (Provider): Psychiatric Evaluation History Per: Patient History/Exam Limitations: no limitations Onset/Duration Of Symptoms: Mins (prior to arrival) Additional Complaint(s): 27 year old male with previous medical history of HIV, bipolar disorder and schizophrenia, who presents to the emergency department with a complaint of suicidal ideation prior to arrival. Patient admitted to drinking alcohol all day with last drink before arrival and stated he wanted to overdose on Xanax but did not take any pills. Patient also reported right arm pain which is currently placed in a cast. PMD: Aaron Brady MD Past Medical History Reviewed: Historical Data, Nursing Documentation, Vital Signs Vital Signs: Last Vital Signs Temp 98.4 F 06/20/17 23:11 Pulse 108 H 06/20/17 23:11 Resp 16 06/20/17 23:11 BP 142/87 06/20/17 23:11 Pulse Ox 95 06/20/17 23:11 - Medical History PMH: Anxiety, Asthma, Bipolar Disorder, Depression, HIV (since ), Paranoia , Schizophrenia, Seizures (ETOH related) Denies: Diabetes, Hepatitis, HTN, Personality Disorder, Chronic Kidney Disease, Sexually Transmitted Disease - Family History Family History: States: Unknown Family Hx - Social History Current smoker - smoking cessation education provided: Yes Alcohol: > 2 Drinks/Day Drugs: Cannabis - Immunization History Hx Tetanus Toxoid Vaccination: No Hx Influenza Vaccination: No Hx Pneumococcal Vaccination: No - Home Medications Home Medications: Ambulatory Orders Medication Instructions Recorded Folic Acid 1 mg PO DAILY tab 05/25/17 Multimineral/Multivitamin 1 tab PO DAILY tab 05/25/17 [Therapeutic-M Tab] Thiamine [Vitamin B1 Tab] 100 mg PO DAILY tab 05/25/17 buPROPion [Wellbutrin] 75 mg PO DAILY #30 tab 05/25/17 Naproxen [Naprosyn] 1 tab PO BID PRN #20 tab 06/03/17 - Allergies Allergies/Adverse Reactions: Allergies Allergy/AdvReac Type Severity Reaction Status Date / Time haloperidol [From Haldol] AdvReac PAIN Verified 06/03/17 14:04 haloperidol lactate AdvReac PAIN Verified 06/03/17 14:04 [From Haldol] Review of Systems ROS Statement: Except As Marked, All Systems Reviewed And Found Negative Musculoskeletal: Positive for: Arm Pain (right-sided) Psych: Positive for: Suicidal ideation Physical Exam - Reviewed Nursing Documentation Reviewed: Yes Vital Signs Reviewed: Yes - Physical Exam Appears: Positive for: No Acute Distress, Uncomfortable Head Exam: Positive for: ATRAUMATIC, NORMAL INSPECTION, NORMOCEPHALIC Skin: Positive for: Normal Color Eye Exam: Positive for: Normal appearance ENT: Positive for: Normal ENT Inspection Neck: Positive for: Normal, Painless ROM. Negative for: Decreased ROM Cardiovascular/Chest: Positive for: Regular Rate, Rhythm, Chest Non Tender Respiratory: Positive for: Normal Breath Sounds. Negative for: Decreased Breath Sounds, Wheezing, Respiratory Distress Gastrointestinal/Abdominal: Positive for: Normal Exam, Soft. Negative for: Tenderness Extremity: Positive for: Normal ROM (upper), Other (neurovascularly intact right arm in ulnar gutter splint noted). Negative for: Deformity (upper) Neurologic/Psych: Positive for: Alert, Oriented, Mood/Affect (intoxicated), Gait (unsteady), Other (slurred speech). Negative for: Motor/Sensory Deficits, Aphasia - Laboratory Results Result Diagrams: 06/21/17 00:15 06/21/17 00:15 - ECG O2 Sat by Pulse Oximetry: 95 (RA) Pulse Ox Interpretation: Normal Medical Decision Making Medical Decision Making: Initial Impression: Suicidal ideation Initial Plan: * Acetaminophen * Alcohol serum * BMP * Drug screen, urine * Salicylate * Crisis evaluation * CBC * Naprosyn 35mg PO * Urinalysis Time: 0600 --Pt. cleared by crisis by Dr. Barbosa with diagnosis of alcohol induced depressive disorder. Upon provider reevaluation, patient is medically stable and requires no further treatment in the ED at this time. Patient will be discharged home. Counseling was provided and all questions were answered regarding diagnosi. There is agreement to discharge plan. Return if symptoms persist or worsen. Clinical Impression: Alcohol induced depression Scribe Attestation: Documented by Hilda Eastman, acting as a scribe for Arthur Burton MD. Provider Scribe Attestation: All medical record entries made by the Scribe were at my direction and personally dictated by me. I have reviewed the chart and agree that the record accurately reflects my personal performance of the history, physical exam, medical decision making, and the department course for this patient. I have also personally directed, reviewed, and agree with the discharge instructions and disposition. Disposition - Clinical Impression Clinical Impression: Alcohol-induced depressive disorder with onset during intoxication - Patient ED Disposition Is Patient to be Admitted: No Counseled Patient/Family Regarding: Studies Performed, Diagnosis - Disposition Referrals: Alcoholics Anonymous [Outside] Community Mental Health [Outside] Disposition: Routine/Home Disposition Time: 06:00 Condition: IMPROVED Instructions: Depression (ED), Abuse of Alcohol (ED), Suicide Prevention for Children and Adolescents (GEN) Forms: [employer] (Romanian)
[2017-06-21 07:01] VITALS: BP 117/69; PULSE 72; TEMP 98.2
== END 2017-06-21 06:54 | disposition home or self-care (01) ==
LOC: H.ER 23:08
DX: R45.851 Suicidal ideations (principal); F32.9 Major depressive disorder, single episode, unspecified; F20.9 Schizophrenia, unspecified; F31.9 Bipolar disorder, unspecified; F41.9 Anxiety disorder, unspecified; Z21 Asymptomatic human immunodeficiency virus [HIV] infection status; J45.909 Unspecified asthma, uncomplicated; F10.94 Alcohol use, unspecified with alcohol-induced mood disorder
CPT/HCPCS: 80048; 85025; 99283; G0480

== ENCOUNTER 2017-06-23 16:37 | Emergency (ER) | payer MEDICAID ==
[2017-06-23 16:37] VITALS: BMI 21.9
[2017-06-23 16:51] VITALS: BP 125/58; PULSE 98; RESP 18; TEMP 97.6; O2SAT 100
--- NOTE | 2017-06-23 17:27 | ED PDOC ---
Upper Extremity Pain/Injury Time Seen by Provider: 06/23/17 17:02 Chief Complaint (Nursing): Upper Extremity Problem/Injury Chief Complaint (Provider): R wrist pain History Per: Patient History/Exam Limitations: no limitations Onset/Duration Of Symptoms: Days (1 month) Current Symptoms Are (Timing): Still Present Additional Complaint(s): Pt. with 1 month of wrist pain after falling onto the right wrist. Came to the ED and dx with wrist fx. Advised to see specialist without fail. States he did not follow up as he is not able to get to the specialist. States he fell again on the wrist 3 days ago. Pain still present. No numbness. Tingles of finger tips. No other pain or injury. Is in splint. Past Medical History Reviewed: Nursing Documentation, Vital Signs Vital Signs: Last Vital Signs Temp 97.6 F 06/23/17 16:48 Pulse 98 H 06/23/17 16:48 Resp 18 06/23/17 16:48 BP 125/58 L 06/23/17 16:48 Pulse Ox 100 06/23/17 16:48 - Medical History PMH: Anxiety, Asthma, Bipolar Disorder, Depression, HIV (since ), Paranoia , Schizophrenia, Seizures (ETOH related) Denies: Diabetes, Hepatitis, HTN, Personality Disorder, Chronic Kidney Disease, Sexually Transmitted Disease Other PMH: fx R wrist - Surgical History Surgical History: No Surg Hx - Family History Family History: States: Unknown Family Hx - Social History Current smoker - smoking cessation education provided: No Alcohol: None Drugs: Denies - Immunization History Hx Tetanus Toxoid Vaccination: No Hx Influenza Vaccination: No Hx Pneumococcal Vaccination: No - Home Medications Home Medications: Ambulatory Orders Medication Instructions Recorded Folic Acid 1 mg PO DAILY tab 05/25/17 Multimineral/Multivitamin 1 tab PO DAILY tab 05/25/17 [Therapeutic-M Tab] Thiamine [Vitamin B1 Tab] 100 mg PO DAILY tab 05/25/17 buPROPion [Wellbutrin] 75 mg PO DAILY #30 tab 05/25/17 Naproxen [Naprosyn] 1 tab PO BID PRN #20 tab 06/03/17 - Allergies Allergies/Adverse Reactions: Allergies Allergy/AdvReac Type Severity Reaction Status Date / Time haloperidol [From Haldol] AdvReac PAIN Verified 06/03/17 14:04 haloperidol lactate AdvReac PAIN Verified 06/03/17 14:04 [From [facility]] Review of Systems Constitutional: Negative for: Weakness Cardiovascular: Negative for: Chest Pain Respiratory: Negative for: Shortness of Breath Musculoskeletal: Positive for: Hand Pain. Negative for: Neck Pain, Shoulder Pain, Arm Pain Neurological: Negative for: Weakness, Numbness Physical Exam - Reviewed Nursing Documentation Reviewed: Yes Vital Signs Reviewed: Yes - Physical Exam Appears: Positive for: Well, Non-toxic, No Acute Distress ENT: Negative for: Nasal Congestion Neck: Positive for: Supple Cardiovascular/Chest: Positive for: Regular Rate, Rhythm Respiratory: Positive for: CNT, Normal Breath Sounds Pulses-Radial (R): 2+ Back: Positive for: Normal Inspection Extremity: Positive for: Tenderness (R wrist). Negative for: Normal ROM ( limited due to pain at wrist) Neurologic/Psych: Positive for: Alert - ECG O2 Sat by Pulse Oximetry: 100 - Radiology X-Ray: Read By Radiologist X-Ray Interpretation: No Acute Disease - Progress ED Course And Treament: 1907: Stable. AAOx3. Pain free. Fu with specialist without fail. Pt. noncompliant. Advised can cause decreased functioning of wrist/hand. Procedures - Splinting Location: R wrist Hand-Made Type: fiberglass Splint: ulnar Pre-Proc Neuro Vasc Exam: normal Post-Proc Neuro Vasc Exam: normal Disposition - Clinical Impression Clinical Impression: Wrist pain - Patient ED Disposition Is Patient to be Admitted: No Counseled Patient/Family Regarding: Studies Performed, Diagnosis, Need For Followup, Rx Given - Disposition Referrals: Shane Leary MD [Medical Doctor] - 06/24/17 Disposition: Routine/Home Disposition Time: 19:12 Condition: STABLE Additional Instructions: Return if not better in 3 days. See the specialist for the wrist fracture without fail. You will have decreased functioning in your wrist and hand if you do not follow up. Instructions: Wrist Injury (ED)
--- NOTE | 2017-06-23 18:53 | RAD ---
PROCEDURE: Right Wrist Radiographs. HISTORY: post cast removal COMPARISON: 06/03/2017. FINDINGS: BONES: Normal. No fracture. JOINTS: Normal. No dislocation. SOFT TISSUES: Normal. OTHER FINDINGS: None. IMPRESSION: Normal right wrist radiographs. Specifically no radiographic evidence of acute fracture.
--- NOTE | 2017-06-23 18:55 | RAD ---
PROCEDURE: Right Wrist Radiographs. HISTORY: pain COMPARISON: 2017. Study done without fiberglass cast. June 03, 2017. FINDINGS: BONES: Normal. No fracture. JOINTS: Normal. No dislocation. SOFT TISSUES: Normal. OTHER FINDINGS: None. IMPRESSION: No acute findings related to/accounting for the clinical presentation. Limitations of the current study: Detail obscured by overlying fiberglass cast.
== END 2017-06-23 19:15 | disposition home or self-care (01) ==
LOC: H.ER 16:37
DX: M25.531 Pain in right wrist (principal); F20.9 Schizophrenia, unspecified; F31.9 Bipolar disorder, unspecified; F41.9 Anxiety disorder, unspecified; J45.909 Unspecified asthma, uncomplicated